=== PATIENT | female | born 2000 | race Caucasian/White ===

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

== ENCOUNTER 2022-08-24 22:23 | Emergency (ER) | payer OTHER ==
[~2022-08-24] VITALS: Ht 162.6 cm; Wt 78.9 kg
[~2022-08-24 22:23] MED LIST changes: +MELATONIN3 M3 PO
== END 2022-08-25 02:14 | disposition home or self-care (01) ==
LOC: ED 22:23
DX: N76.0 Acute vaginitis (principal); N83.202 Unspecified ovarian cyst, left side; Z88.2 Allergy status to sulfonamides
CPT/HCPCS: 36415; 74177; 80053; 81003; 83690; 84703; 85025; 87491; 99283-25; A9270; J0696; J7030; Q9967

== ENCOUNTER 2023-02-02 03:04 | Emergency (ER) | payer OTHER ==
[~2023-02-02] VITALS: Ht 162.6 cm; Wt 61.9 kg
--- OUTSIDE RECORDS SUMMARY | 2023-02-02 03:24 | XMS ---
PreManage Notification: ALEXIS BAER Security [employer] Events 1 event(s) in the past 18 months Most recent security events: Elopement at [facility] 05/25/2022 15:44 - Patient eloped before treatment completed. - Patient with suicidal and/or homicidal ideations eloped. - Patient eloped with IV in place. Details: PATIENT LWBS CRITERIA MET - [facility] - 2 Visits in 30 Days CARE PROVIDERS -Tanisha- Dentist: [place] Supervisor [facility] PHONE: [phone] MAXIMILIAN POWELL It Security Project Manager: Clinical Current PHONE: [phone] [facility] has no Care Guidelines for this patient. E.D. VISIT COUNT (12 MO.) [address] [facility] TOTAL 4 NOTE: Visits indicate total known visits. ED/[facility] VISIT TRACKING (12 MO.) 02/02/2023 03:06 [facility] TYPE: Emergency COMPLAINT: - R SIDE PAIN 01/07/2023 22:43 [facility] [place] TYPE: Emergency COMPLAINT: - THROAT ISSUES DIAGNOSES: - Acute upper respiratory infection, unspecified - Allergy status to sulfonamides 08/24/2022 22:26 [facility] [place] TYPE: Emergency COMPLAINT: - VAGINAL ISSUE DIAGNOSES: - Acute vaginitis - Allergy status to sulfonamides - Lower abdominal pain, unspecified - Unspecified ovarian cyst, left side 05/25/2022 15:44 [facility] [place] TYPE: Emergency COMPLAINT: - VAGINAL BLEEDING INPATIENT VISIT TRACKING (12 MO.) No inpatient visits to display in this time frame [id number]
[2023-02-02] MEDS ORDERED: CYCLOBENZAPRINE10 MG PO (04:19)
[2023-02-02 04:22] VITALS: BP 124/93
== END 2023-02-02 04:25 | disposition home or self-care (01) ==
LOC: ED 03:04
DX: R07.89 Other chest pain (principal); F43.10 Post-traumatic stress disorder, unspecified; G47.00 Insomnia, unspecified; Z88.2 Allergy status to sulfonamides
CPT/HCPCS: 71100; 99283-25

== ENCOUNTER 2023-04-27 16:24 | Emergency (ER) | payer OTHER ==
[~2023-04-27] VITALS: Ht 162.6 cm; Wt 71.7 kg
--- OUTSIDE RECORDS SUMMARY | ~2023-04-27 | XMS | Continuity of Care Document ---
Demographics + + + | Address | [address] | | | [place] [address] | + + + | Preferred Language | Unknown | + + + | Marital Status | Never | + + + | Pentecostalism Affiliation | Unknown | + + + | Race | White | + + + | Ethnic Group | Not or | + + + Author + + + | Author | [facility] | + + + | Organization | [facility] | + + + | Address | [address] | | | [place] [address] | + + + | Phone | | + + + Care Team Providers + + + + | Care Running Instructor Name | Role | Phone | + + + + Unavailable | Unavailable | + + + + Unavailable | Unavailable | + + + + Unavailable | Unavailable | + + + + Unavailable | Unavailable | + + + + Allergies and Intolerances + + + + + + | date | description | facility | reaction | severity | + + + + + + | (no date) | Rash | [facility] | (no reaction) | (no severity) [facility] | | | + + + + + + Encounters No information. Functional Status No information. Immunizations No information. Medications + + + + | date | description | facility | + + + + | 2022-05-25 00:00 | Melatonin | [facility] | + + + + | 2022-08-25 00:00 | Melatonin | [facility] | + + + + | 2023-01-08 00:00 | Melatonin | [facility] | + + + + | 2023-02-02 00:00 | Melatonin | [facility] | + + + + | 2023-02-02 00:00 | CYCLOBENZAPRINE HCL | [facility] | + + + + | 2019-05-01 00:00 | | [facility] | | | SULFAMETHOXAZOLE/TRIMETHOPR | | | | IM DS | | + + + + | 2019-05-01 00:00 | | [facility] | | | SULFAMETHOXAZOLE/TRIMETHOPR | | | | IM DS | | + + + + | 2019-05-01 00:00 | | [facility] | | | SULFAMETHOXAZOLE/TRIMETHOPR | | | | IM DS | | + + + + Problems + + + + | date | description | facility | + + + + | 2017-06-07 00:00 | Pharyngitis | [facility] | + + + + | 2017-06-07 00:00 | Pharyngitis | [facility] | + + + + | 2017-06-07 00:00 | Pharyngitis | [facility] | + + + + | 2019-05-01 00:00 | Urinary tract infection | [facility] | + + + + | 2019-05-01 00:00 | Urinary tract infection | [facility] | + + + + | 2019-05-01 00:00 | Urinary tract infection | [facility] | + + + + | 2019-05-10 00:00 | Allergic drug rash due to | [facility] | | | sulfonamide | | + + + + | 2019-05-10 00:00 | Allergic drug rash due to | [facility] | | | sulfonamide | | + + + + | 2019-05-10 00:00 | Allergic drug rash due to | [facility] | | | sulfonamide | | + + + + | 2019-05-10 00:00 | Allergic drug rash | [facility] | + + + + | 2019-05-10 00:00 | Allergic drug rash | [facility] | + + + + | 2019-05-10 00:00 | Allergic drug rash | [facility] | + + + + | 2022-05-25 00:00 | Patient left without being | [facility] | | | seen | | + + + + | 2022-05-25 00:00 | Patient left without being | [facility] | | | seen | | + + + + | 2022-05-25 00:00 | Patient left without being | [facility] | | | seen | | + + + + | 2022-08-25 00:00 | Vaginitis | [facility] | + + + + | 2022-08-25 00:00 | Vaginitis | [facility] | + + + + | 2022-08-25 00:00 | Cyst of ovary | [facility] | + + + + | 2022-08-25 00:00 | Cyst of ovary | [facility] | + + + + | 2023-01-07 00:00 | Viral upper respiratory | [facility] | | | tract infection | | + + + + | 2023-01-07 22:43 | ACUTE UPPER RESPIRATORY | [facility] | | | INFECTION, UNSPECIFIED | | + + + + | 2023-01-07 22:43 | ALLERGY STATUS TO | [facility] | | | SULFONAMIDES STATUS | | + + + + | 2023-02-02 00:00 | Chest wall pain | [facility] | + + + + Procedures No information. Results/Labs +--------+--------+ +---------+--------+---------+ | test | date | facility | value | unit | notes | +--------+--------+ +---------+--------+---------+ + + | Result panel 1 | + + + + + +--------+ + + | | 2022-08-24 | [facility] | 13.1 | (missing) | (missing) | | (unavailable [facility] | | | | + + + +--------+ + + + + | Result panel 2 | + + + + + +-------+ + + | | 2022-08-24 | [facility] | 243 | (missing) | (missing) | | (unavailable | [facility] | | | | + + + +-------+ + + + + | Result panel 3 | + + + + + +--------+ + + | | 2022-08-24 | [facility] | 58.0 | (missing) | (missing) | | (unavailable | [facility] | | | | + + + +--------+ + + + + | Result panel 4 | + + + + + +--------+ + + | | 2022-08-24 | [facility] | 26.0 | (missing) | (missing) | | (unavailable | [facility] | | | | + + + +--------+ + + + + | Result panel 5 | + + + + + +--------+ + + | | 2022-08-24 | [facility] | 10.5 | (missing) | (missing) | | (unavailable | [facility] | | | | + + + +--------+ + + + + | Result panel 6 | + + + + + +-------+ + + | | 2022-08-24 | [facility] | 4.9 | (missing) | (missing) | | (unavailable | [facility] | | | | + + + +-------+ + + + + | Result panel 7 | + + + + + +-------+ + + | | 2022-08-24 | [facility] | 0.6 | (missing) | (missing) | | (unavailable | [facility] | | | | + + + +-------+ + + + + | Result panel 8 | + + + + + +------+---------+ + | | 2022-08-24 | [facility] | 89 | mg/dL | (missing) | | (unavailable | [facility] | | | | + + + +------+---------+ + + + | Result panel 9 | + + + + + +------+---------+ + | | 2022-08-24 | [facility] | 13 | mg/dL | (missing) | | (unavailable | [facility] | | | | + + + +------+---------+ + + + | Result panel 10 | + + + + + +--------+---------+ + | | 2022-08-24 | [facility] | 0.75 | mg/dL | (missing) | | (unavailable | [facility] | | | | + + + +--------+---------+ + + + | Result panel 11 | + + + + + +-------+ + + | | 2022-08-24 | [facility] | 116 | (missing) | (missing) | | (unavailable | [facility] | | | | + + + +-------+ + + + + | Result panel 12 | + + + + + +---------+ + + | | 2022-08-24 | [facility] | 17.33 | (missing) | (missing) | | (unavailable | [facility] | | | | + + + +---------+ + + + + | Result panel 13 | + + + + + +-------+ + + | | 2022-08-24 | [facility] | 138 | (missing) | (missing) | | (unavailable | [facility] | | | | + + + +-------+ + + + + | Result panel 14 | + + + + + +-------+ + + | | 2022-08-24 | [facility] | 3.4 | (missing) | (missing) | | (unavailable | [facility] | | | | + + + +-------+ + + + + | Result panel 15 | + + + + + +-------+ + + | | 2022-08-24 | [facility] | 105 | (missing) | (missing) | | (unavailable | [facility] | | | | + + + +-------+ + + + + | Result panel 16 | + + + + + +------+ + + | | 2022-08-24 | [facility] | 27 | (missing) | (missing) | | (unavailable | [facility] | | | | + + + +------+ + + + + | Result panel 17 | + + + + + +-------+ + + | | 2022-08-24 | [facility] | 9.4 | (missing) | (missing) | | (unavailable | [facility] | | | | + + + +-------+ + + + + | Result panel 18 | + + + + + +-------+---------+ + | | 2022-08-24 | [facility] | 8.9 | mg/dL | (missing) | | (unavailable | [facility] | | | | + + + +-------+---------+ + + + | Result panel 19 | + + + + + +-------+ + + | | 2022-08-24 | [facility] | 6.8 | (missing) | (missing) | | (unavailable | [facility] | | | | + + + +-------+ + + + + | Result panel 20 | + + + + + +-------+ + + | | 2022-08-24 | [facility] | 3.5 | (missing) | (missing) | | (unavailable | [facility] | | | | + + + +-------+ + + + + | Result panel 21 | + + + + + +-------+ + + | | 2022-08-24 | [facility] | 9.1 | (missing) | (missing) | | (unavailable | [facility] | | | | + + + +-------+ + + + + | Result panel 22 | + + + + + +-------+ + + | | 2022-08-24 | [facility] | 3.3 | (missing) | (missing) | | (unavailable | [facility] | | | + + + +-------+ + + + + | Result panel 23 | + + + + + +--------+ + + | | 2022-08-24 | [facility] | 1.06 | (missing) | (missing) | | (unavailable | [facility] | | | | + + + +--------+ + + + + | Result panel 24 | + + + + + +-------+ + + | | 2022-08-24 | [facility] | 0.3 | (missing) | (missing) | | (unavailable | [facility] | | | + + + +-------+ + + + + | Result panel 25 | + + + + + +------+ + + | | 2022-08-24 | [facility] | 10 | (missing) | (missing) | | (unavailable | [facility] | | | + + + +------+ + + + + | Result panel 26 | + + + + + +------+ + + | | 2022-08-24 | [facility] | 16 | (missing) | (missing) | | (unavailable | [facility] | | | + + + +------+ + + + + | Result panel 27 | + + + + + +------+ + + | | 2022-08-24 | [facility] | 48 | (missing) | (missing) | | (unavailable | [facility] | | | + + + +------+ + + + + | Result panel 28 | + + + + + +------+ + + | | 2022-08-24 | [facility] | 69 | (missing) | (missing) | | (unavailable | [facility] | | | + + + +------+ + + + + | Result panel 29 | + + + + + + + + + | | 2022-08-24 | [facility] | NEGATIVE | (missing) | (missing) | | (unavailable | [facility] | | | + + + + + + + + + | Result panel 30 | + + + + + +--------+ + + | | 2022-08-24 | [facility] | 4.31 | (missing) | (missing) | | (unavailable | [facility] | | | + + + +--------+ + + + + | Result panel 31 | + + + + + +--------+ + + | | 2022-08-24 | [facility] | 13.7 | (missing) | (missing) | | (unavailable | [facility] | | | + + + +--------+ + + + + | Result panel 32 | + + + + + +--------+ + + | | 2022-08-24 | [facility] | 40.8 | (missing) | (missing) | | (unavailable | [facility] | | | + + + +--------+ + + + + | Result panel 33 | + + + + + +--------+ + + | | 2022-08-24 | [facility] | 94.6 | (missing) | (missing) | | (unavailable | [facility] | | | | + + + +--------+ + + + + | Result panel 34 | + + + + + +--------+ + + | | 2022-08-24 | [facility] | 31.8 | (missing) | (missing) | | (unavailable | [facility] | | | | + + + +--------+ + + + + | Result panel 35 | + + + + + +--------+ + + | | 2022-08-24 | [facility] | 33.6 | (missing) | (missing) | | (unavailable | [facility] | | | + + + +--------+ + + + + | Result panel 36 | + + + + + + + + + | | 2022-08-25 | [facility] | YELLOW | (missing) | (missing) | | (unavailable | [facility]15:08 [facility] | | | + + + + + + + + + | Result panel 37 | + + + + + +---------+ + + | | 2022-08-25 | [facility] | CLEAR | (missing) | (missing) | | (unavailable | [facility]15[facility]08 [facility] | | | | + + + +---------+ + + + + | Result panel 38 | + + + + + + + + + | | 2022-08-25 | [facility] | NEGATIVE | (missing) | (missing) | | (unavailable | [facility]08 [facility] | | | + + + + + + + + + | Result panel 39 | + + + + + + + + + | | 2022-08-25 | [facility] | NEGATIVE | (missing) | (missing) | | (unavailable | [facility]:15[facility]08 [facility] | | | + + + + + + + + + | Result panel 40 | + + + + + + + + + | | 2022-08-25 | [facility] | NEGATIVE | (missing) | (missing) | | (unavailable | [facility]:15[facility]08 [facility] | | | + + + + + + + + + | Result panel 41 | + + + + + +---------+ + + | | 2022-08-25 | [facility] | 1.020 | (missing) | (missing) | | (unavailable | [facility]15:08 [facility] | | | | + + + +---------+ + + + + | Result panel 42 | + + + + + + + + + | | 2022-08-25 | [facility] | NEGATIVE | (missing) | (missing) | | (unavailable | [facility]:15[facility]08 [facility] | | | + + + + + + + + + | Result panel 43 | + + + + + +-------+ + + | | 2022-08-25 | [facility] | 5.5 | (missing) | (missing) | | (unavailable | [facility]15[facility]08 [facility] | | | | + + + +-------+ + + + + | Result panel 44 | + + + + + + + + + | | 2022-08-25 | [facility] | NEGATIVE | (missing) | (missing) | | (unavailable | [facility]15[facility]08 [facility] | | | | + + + + + + + + + | Result panel 45 | + + + + + + + + + | | 2022-08-25 | [facility] | NORMAL | (missing) | (missing) | | (unavailable | [facility]:15[facility]08 [facility] | | | + + + + + + + + + | Result panel 46 | + + + + + + + + + | | 2022-08-25 | [facility] | NEGATIVE | (missing) | (missing) | | (unavailable | [facility]:15[facility]08 [facility] | | | + + + + + + + + + | Result panel 47 | + + + + + + + + + | | 2022-08-25 | [facility] | NEGATIVE | (missing) | (missing) | | (unavailable | [facility]08 [facility] | | | + + + + + + + + + | Result panel 48 | + + + + + + + + + | | 2023-01-07 | [facility] | NEGATIVE | (missing) | (missing) | | (unavailable | 23[facility]20:07 [facility] | | | + + + + + + + + + | Result panel 49 | + + + + + + + + + | | 2023-01-07 | [facility] | NEGATIVE | (missing) | (missing) | | (unavailable | [facility]20:07 [facility] | | | | + + + + + + + Social History No information. Vital Signs + + + +---------+ | date | measurement | value | units | + + + +---------+ | 2022-05-25 00:00 | BMI | 29.9 | kg/m2 | + + + +---------+ | 2022-05-25 00:00 | BP_diastolic | 67 | mmHg | + + + +---------+ | 2022-05-25 00:00 | BP_systolic | 117 | mmHg | + + + +---------+ | 2022-05-25 00:00 | heart_rate | 65 | /min | + + + +---------+ | 2022-05-25 00:00 | height_metric | 162.56 | cm | + + + +---------+ | 2022-05-25 00:00 | height_standard | 64 | in | + + + +---------+ | 2022-05-25 00:00 | o2_saturation | 98 | % | + + + +---------+ | 2022-05-25 00:00 | respiration_rate | 18 | /min | + + + +---------+ | 2022-05-25 00:00 | temperature_metric | 36.33 | C | | | | | | + + + +---------+ | 2022-05-25 00:00 | | 97.4 | F | | | temperature_standar | | | | | d | | | + + + +---------+ | 2022-05-25 00:00 | weight_metric | 78.92 | kg | + + + +---------+ | 2022-05-25 00:00 | weight_metric | 78.93 | kg | + + + +---------+ | 2022-05-25 00:00 | weight_standard | 174 | lb | + + + +---------+ | 2022-08-24 00:00 | BMI | 29.9 | kg/m2 | + + + +---------+ | 2022-08-24 00:00 | height_metric | 162.56 | cm | + + + +---------+ | 2022-08-24 00:00 | height_standard | 64 | in | + + + +---------+ | 2022-08-24 00:00 | weight_metric | 78.92 | kg | + + + +---------+ | 2022-08-24 00:00 | weight_metric | 78.93 | kg | + + + +---------+ | 2022-08-24 00:00 | weight_standard | 173.99 | lb | + + + +---------+ | 2022-08-24 00:00 | weight_standard | 174 | lb | + + + +---------+ | 2022-08-25 00:00 | BP_diastolic | 81 | mmHg | + + + +---------+ | 2022-08-25 00:00 | BP_systolic | 125 | mmHg | + + + +---------+ | 2022-08-25 00:00 | heart_rate | 94 | /min | + + + +---------+ | 2022-08-25 00:00 | o2_saturation | 100 | % | + + + +---------+ | 2022-08-25 00:00 | respiration_rate | 16 | /min | + + + +---------+ | 2022-08-25 00:00 | temperature_metric | 37.02 | C | | | | | | + + + +---------+ | 2022-08-25 00:00 | | 98.63 | F | | | temperature_standar | | | | | d | | | + + + +---------+ | 2023-01-07 00:00 | BMI | 2989.6 | kg/m2 | + + + +---------+ | 2023-01-07 00:00 | height_metric | 162.56 | cm | + + + +---------+ | 2023-01-07 00:00 | height_standard | 64 | in | + + + +---------+ | 2023-01-07 00:00 | weight_metric | 7900.21 | kg | + + + +---------+ | 2023-01-07 00:00 | weight_metric | 7900.22 | kg | + + + +---------+ | 2023-01-07 00:00 | weight_standard | 69369.98 | lb | + + + +---------+ | 2023-01-07 00:00 | weight_standard | 96508 | lb | + + + +---------+ | 2023-01-08 00:00 | BP_diastolic | 76 | mmHg | + + + +---------+ | 2023-01-08 00:00 | BP_systolic | 132 | mmHg | + + + +---------+ | 2023-01-08 00:00 | heart_rate | 100 | /min | + + + +---------+ | 2023-01-08 00:00 | o2_saturation | 98 | % | + + + +---------+ | 2023-01-08 00:00 | respiration_rate | 15 | /min | + + + +---------+ | 2023-01-08 00:00 | temperature_metric | 36.89 | C | | | | | | + + + +---------+ | 2023-01-08 00:00 | | 98.4 | F | | | temperature_standar | | | | | d | | | + + + +---------+ | 2023-02-02 00:00 | BMI | 23.4 | kg/m2 | + + + +---------+ | 2023-02-02 00:00 | BP_diastolic | 93 | mmHg | + + + +---------+ | 2023-02-02 00:00 | BP_systolic | 124 | mmHg | + + + +---------+ | 2023-02-02 00:00 | heart_rate | 71 | /min | + + + +---------+ | 2023-02-02 00:00 | height_metric | 162.56 | cm | + + + +---------+ | 2023-02-02 00:00 | height_standard | 64 | in | + + + +---------+ | 2023-02-02 00:00 | o2_saturation | 99 | % | + + + +---------+ | 2023-02-02 00:00 | respiration_rate | 18 | /min | + + + +---------+ | 2023-02-02 00:00 | temperature_metric | 36.89 | C | | | | | | + + + +---------+ | 2023-02-02 00:00 | | 98.4 | F | | | temperature_standar | | | | | d | | | + + + +---------+ | 2023-02-02 00:00 | weight_metric | 61.9 | kg | + + + +---------+ | 2023-02-02 00:00 | weight_standard | 136.47 | lb | + + + +---------+"
--- OUTSIDE RECORDS SUMMARY | ~2023-04-27 | XMS | Continuity of Care Document ---
Demographics + + + | Address | [address] | | | [place] [address] | + + + | Preferred Language | Unknown | + + + | Marital Status | Never | + + + | [employer] Affiliation | Unknown | + + + | Race | White | + + + | Ethnic Group | Not or | + + + Author + + + | Author | [facility] | + + + | Organization | [facility] | + + + | Address | [address] | | | [place] [address] | + + + | Phone | | + + + Care Team Providers + + + + | Care Tube Repairer Name | Role | Phone | + [...] + | 2022-05-25 00:00 | Melatonin | [facility] | + + + + | 2022-08-25 00:00 | Melatonin | [facility] | + + + + | 2023-01-08 00:00 | Melatonin | [facility] | + + + + | 2023-02-02 00:00 | Melatonin | [facility] | + + + + | 2023-02-02 00:00 | CYCLOBENZAPRINE HCL | [facility] | + + + + | 2019-05-01 00:00 | | [facility] | | | SULFAMETHOXAZOLE/TRIMETHOPR | | | | IM DS | | + + + + | 2019-05-01 00:00 | | [facility] | | | SULFAMETHOXAZOLE/TRIMETHOPR | | | | IM DS | | + + + + | 2019-05-01 00:00 | | [facility] | | | SULFAMETHOXAZOLE/TRIMETHOPR | | | | IM DS | | + + + + Problems + + + + | date | description | facility | + + + + | 2017-06-07 00:00 | Pharyngitis | [facility] | + + + + | 2017-06-07 00:00 | Pharyngitis | [facility] | + + + + | 2017-06-07 00:00 | Pharyngitis | [facility] | + + + + | 2019-05-01 00:00 | Urinary tract infection | [facility] | + + + + | 2019-05-01 00:00 | Urinary tract infection | [facility] | + + + + | 2019-05-01 00:00 | Urinary tract infection | [facility] | + + + + | 2019-05-10 00:00 | Allergic drug rash due to | [facility] | | | sulfonamide | | + + + + | 2019-05-10 00:00 | Allergic drug rash due to | [facility] | | | sulfonamide | | + + + + | 2019-05-10 00:00 | Allergic drug rash due to | [facility] | | | sulfonamide | | + + + + | 2019-05-10 00:00 | Allergic drug rash | [facility] | + + + + | 2019-05-10 00:00 | Allergic drug rash | [facility] | + + + + | 2019-05-10 00:00 | Allergic drug rash | [facility] | + + + + | 2022-05-25 00:00 | Patient left without being | [facility] | | | seen | | + + + + | 2022-05-25 00:00 | Patient left without being | [facility] | | | seen | | + + + + | 2022-05-25 00:00 | Patient left without being | [facility] | | | seen | | + + + + | 2022-08-25 00:00 | Vaginitis | [facility] | + + + + | 2022-08-25 00:00 | Vaginitis | [facility] | + + + + | 2022-08-25 00:00 | Cyst of ovary | [facility] | + + + + | 2022-08-25 00:00 | Cyst of ovary | [facility] | + + + + | 2023-01-07 00:00 | Viral upper respiratory | [facility] | | | tract infection | | + + + + | 2023-01-07 22:43 | ACUTE UPPER RESPIRATORY | [facility] | | | INFECTION, UNSPECIFIED | | + + + + | 2023-01-07 22:43 | ALLERGY STATUS TO | [facility] | | | SULFONAMIDES STATUS | | + + + + | 2023-02-02 00:00 | Chest wall pain | [facility] | + + + + Procedures No [...] +---------+ | 2023-01-07 00:00 | weight_standard | 78014.98 | lb | + + + +---------+ | 2023-01-07 00:00 | weight_standard | [id number] | lb | + + + +---------+ [...]
[~2023-04-27 16:24] MED LIST changes: +CYCLOBENZAPRINE10 MG PO
[2023-04-27 18:20] LABS: BILIRUBIN, URINE NEGATIVE (negative); BLOOD/HGB, URINE NEGATIVE (Negative); KETONE, URINE NEGATIVE (Negative); LEUK ESTERASE, URINE NEGATIVE (negative); NITRITE, URINE NEGATIVE (negative)
[2023-04-27 18:21] LABS: EPITHELIAL CELLS, URINE SQUAMOUS 1+ /lpf (0-1+); RED BLOOD CELLS, URINE 0-1 /hpf (0-5); REFLEX CULTURE, URINE No (No); WHITE BLOOD CELLS, URINE 0-1 /HPF (0-5)
[2023-04-27] MEDS ORDERED: GABAPENTIN100 MG PO (18:42)
[2023-04-27 18:57] VITALS: BP 119/84
== END 2023-04-27 19:03 | disposition home or self-care (01) ==
LOC: ED 16:24
PROVIDERS: Family Medicine
DX: N94.2 Vaginismus (principal); Z88.2 Allergy status to sulfonamides
CPT/HCPCS: 81001; 84703; 99283